=== PATIENT | male | born 1930 ===

== ENCOUNTER 2018-04-16 12:47 | Emergency (ER) | payer MEDICARE ==
[2018-04-16 12:57] VITALS: BP 146/90; PULSE 65; RESP 16; TEMP 98.2; O2SAT 98
--- NOTE | 2018-04-16 14:00 | ED PDOC ---
Lower Extremity Pain/Injury Time Seen by Provider: 04/16/18 13:17 Chief Complaint (Nursing): Lower Extremity Problem/Injury Chief Complaint (Provider): Leg pain History Per: Patient, EMS History/Exam Limitations: no limitations Onset/Duration Of Symptoms: Mins Current Symptoms Are (Timing): Better Additional Complaint(s): 87 year old male presented to the ED via EMS complaining of leg pain. Patient reports he was walking to the doctor's office when he felt pain in both legs. Patient then flagged a mold stripper down who called EMS and brought him to the ED. He denies leg pain at this time along with swelling, chest pain, and SOB. PCP: Rony Sparrow Past Medical History Reviewed: Historical Data, Nursing Documentation, Vital Signs Vital Signs: Last Vital Signs Temp 98.2 F 04/16/18 12:52 Pulse 65 04/16/18 12:52 Resp 16 04/16/18 12:52 BP 146/90 04/16/18 12:52 Pulse Ox 98 04/16/18 12:52 - Medical History PMH: No Chronic Diseases, Diabetes - Surgical History Surgical History: No Surg Hx - Family History Family History: States: Unknown Family Hx - Allergies Allergies/Adverse Reactions: Allergies Allergy/AdvReac Type Severity Reaction Status Date / Time No Known Allergies Allergy Verified 04/16/18 12:55 Review of Systems ROS Statement: Except As Marked, All Systems Reviewed And Found Negative Cardiovascular: Negative for: Chest Pain Respiratory: Negative for: Shortness of Breath Musculoskeletal: Positive for: Leg Pain (bilateral). Negative for: Other (leg swelling) Physical Exam - Reviewed Nursing Documentation Reviewed: Yes Vital Signs Reviewed: Yes - Physical Exam Appears: Positive for: Non-toxic, No Acute Distress Head Exam: Positive for: ATRAUMATIC, NORMOCEPHALIC Skin: Positive for: Normal Color, Warm, Dry Eye Exam: Positive for: Normal appearance Neck: Positive for: Normal, Painless ROM Cardiovascular/Chest: Positive for: Regular Rate, Rhythm. Negative for: Murmur Respiratory: Positive for: Normal Breath Sounds. Negative for: Wheezing, Respiratory Distress Extremity: Positive for: Normal ROM. Negative for: Tenderness, Other (erythema) Neurologic/Psych: Positive for: Alert, Oriented (x3). Negative for: Motor/ Sensory Deficits - ECG O2 Sat by Pulse Oximetry: 98 (RA) Pulse Ox Interpretation: Normal Medical Decision Making Medical Decision Making: Initial Impression: Leg pain Initial Plan: Dr. Hester was consulted and he agrees with discharge. He states patient has a history of lumbar spinal issues and this is nothing new for him. Patient will follow up at his office. Scribe Attestation: Documented by Marin Romero acting as a scribe for Corin Vaughn MD. Provider Scribe Attestation: All medical record entries made by the Scribe were at my direction and personally dictated by me. I have reviewed the chart and agree that the record accurately reflects my personal performance of the history, physical exam, medical decision making, and the department course for this patient. I have also personally directed, reviewed, and agree with the discharge instructions and disposition. Disposition - Clinical Impression Clinical Impression: Chronic pain of lower extremity, bilateral - Disposition Referrals: Rony Hester MD [Family Provider] - Disposition: Routine/Home Disposition Time: 14:19 Condition: STABLE Additional Instructions: JARVIS MAY. Instructions: Chronic Pain (DC) Forms: [employer] ([place])
== END 2018-04-16 14:22 | disposition home or self-care (01) ==
LOC: H.ER 12:47
DX: M79.606 Pain in leg, unspecified (principal); E11.9 Type 2 diabetes mellitus without complications